=== PATIENT | female | born 1940 | race Caucasian/White ===

== ENCOUNTER → 2019-09-18 | Day surgery (SDC) | payer MEDICARE, BC ==
[~2019-09-18] MED LIST: Lactated Ringers 1,000 ML IV SCH; Phenylephrine 1% 10 MG/ML SDV IV ONE; Propofol 200 MG/20 ML SDV IV ONE; ePHEDrine 50 MG/ML SDV IV ONE
[2019-09-18 11:47] VITALS: BP 122/61; PULSE 83
--- NOTE | 2019-09-18 13:09 | OR ---
DATE OF OPERATION: 09/18/2019 PREOPERATIVE DIAGNOSIS: FAMILY HISTORY OF COLON CARCINOMA. POSTOPERATIVE DIAGNOSIS: FAMILY HISTORY OF COLON CARCINOMA. SURGEON: Mandeep Heard MD PROCEDURE: FULL-LENGTH COLONOSCOPY. ANESTHESIA: MAC. COMPLICATIONS: None. SPECIMEN: None. FINDINGS: 1. Full-length colonoscopy. 2. [id number] sigmoid diverticulosis. RECOMMENDATIONS: Followup colonoscopy in 5 years. INDICATIONS: The patient has a family history of colon cancer. It has been many years since her last colonoscopy. She elected to proceed. DESCRIPTION OF PROCEDURE: The patient was prepped and draped, placed in the left lateral decubitus position. A lubricated Olympus colonoscope was inserted and advanced to the cecum. The patient was extremely tortuous and a long colon, but we were able to safely advance. She had an excellent prep. We were able to visualize the ileocecal valve and appendiceal orifice without problem. Upon withdrawal, throughout the entire length of the colon, I could find no polyps, masses, ulceration, or bleeding sites. No vascular abnormalities or signs of colitis. The patient had scattered diverticula throughout the entire sigmoid and rectosigmoid region, [id number] in severity without inflammatory change. The rectal vault was benign. Retroflexion showed no perianal lesions. Air was suctioned, scope removed without complication. SEBASTIAN/WALDEMAR /[id number]
== END ==
LOC: CC.SDS 09:34
PROVIDERS: ATTEND Family Medicine
DX: Z12.11 Encounter for screening for malignant neoplasm of colon (principal); K57.30 Diverticulosis of large intestine without perforation or abscess without bleeding; I50.9 Heart failure, unspecified; E78.5 Hyperlipidemia, unspecified; D50.9 Iron deficiency anemia, unspecified; M81.0 Age-related osteoporosis without current pathological fracture; M17.10 Unilateral primary osteoarthritis, unspecified knee; Z80.0 Family history of malignant neoplasm of digestive organs; Z87.891 Personal history of nicotine dependence; Z79.899 Other long term (current) drug therapy
CPT/HCPCS: 00812; G0121; J2370; J2704; J7120

== ENCOUNTER 2024-12-18 06:46 | Day surgery (SDC) | payer MEDICARE ==
[2024-12-18] MEDS: Lactated Ringers 1,000 ML IV SCH (07:11)
[2024-12-18] MEDS ORDERED: fentaNYL 50 MCG/ML SDV ONE (07:20)
[2024-12-18] MEDS ORDERED: Propofol 200 MG/20 ML SDV ONE (07:20)
[2024-12-18 08:59] VITALS: BP 116/58; PULSE 90
== END 2024-12-18 08:52 | disposition home or self-care (01) ==
LOC: CC.SDS 06:46
PROVIDERS: ATTEND Family Medicine
DX: Z12.11 Encounter for screening for malignant neoplasm of colon (principal); D12.2 Benign neoplasm of ascending colon; D12.3 Benign neoplasm of transverse colon; K57.30 Diverticulosis of large intestine without perforation or abscess without bleeding; Z80.0 Family history of malignant neoplasm of digestive organs; E78.5 Hyperlipidemia, unspecified; I42.9 Cardiomyopathy, unspecified; Z79.899 Other long term (current) drug therapy
CPT/HCPCS: 00811; 45380; 88305; 99100; J2704; J3010; J7120